=== PATIENT | female | born 1975 | race African-American/Black ===

== ENCOUNTER → 2020-10-03 | Day surgery (SDC) | payer OTHER ==
[~2020-10-03] VITALS: Ht 180.3 cm; Wt 105.7 kg
[~2020-10-03] MED LIST: ALLERGY SHOTS IM; ATARAX25 MG PO; FLONASE ALLER15.8 ML; MELOXICAM15 MG PO; VIT D PO; WELLBUTRIN XL150 MG PO; ZYRTEC10 M3 PO
[2020-10-03 13:27] LABS: HCG (URINE) SCREEN NEGATIVE (NEGATIVE)
[2020-10-03 13:46] LABS: HCT 32.5 % (37.0-47.0); HGB 10.4 g/dl (12.5-16.0); MCH 28.8 pg (25.0-31.0); MPV 9.6 fL (6.0-9.5); RBC 3.61 M/uL (4.20-5.40); RDW 14.1 % (11.5-14.0); WBC 8.1 K/uL (4.0-10.5)
== END | disposition home or self-care (01) ==
LOC: FAS 12:30
PROVIDERS: Anesthesiology
DX: N85.8 Other specified noninflammatory disorders of uterus (principal); F41.9 Anxiety disorder, unspecified; Z79.899 Other long term (current) drug therapy
CPT/HCPCS: 36415; 84703; 93005; J0690; J1100; J1170; J1885; J2250; J2405; J2704; J3010; J7120

== ENCOUNTER → 2021-08-28 | Day surgery (SDC) | payer OTHER ==
[~2021-08-28] VITALS: Ht 180.3 cm; Wt 104.3 kg
[~2021-08-28] MED LIST changes: +TIZANIDINE HCL2 MG PO
[2021-08-28 09:00] LABS: HCG (URINE) SCREEN NEGATIVE (NEGATIVE)
== END | disposition home or self-care (01) ==
LOC: FAS 08:45
PROVIDERS: Anesthesiology
DX: Z12.11 Encounter for screening for malignant neoplasm of colon (principal); K62.1 Rectal polyp; Z80.0 Family history of malignant neoplasm of digestive organs
CPT/HCPCS: 84703; J2704; J7120

== ENCOUNTER → 2021-09-29 | Day surgery (SDC) | payer OTHER ==
[~2021-09-29] VITALS: Ht 180.3 cm; Wt 102.0 kg
[2021-09-29 07:01] LABS: HCT 42.2 % (37.0-47.0); HGB 13.4 g/dl (12.5-16.0); MCH 28.5 pg (25.0-31.0); MCHC 31.8 g/dL (32.0-36.0); MCV 89.6 fL (78.0-100.0); MPV 9.4 fL (6.0-9.5); RBC 4.71 M/uL (4.20-5.40); RDW 14.4 % (11.5-14.0)
[2021-09-29 07:02] LABS: HCG (URINE) SCREEN NEGATIVE (NEGATIVE)
[2021-09-29 07:17] LABS: ALBUMIN 3.8 g/dL (3.4-5.0); BILIRUBIN - TOTAL 0.5 mg/dL (0.2-1.0); BUN/CREAT RATIO (CALC) 17.1 RATIO; CREATININE 1.05 mg/dL (0.51-0.95); GLOBULIN (CALCULATION) 3.7 g/dL; TOTAL PROTEIN 7.5 g/dL (6.4-8.2)
== END | disposition home or self-care (01) ==
LOC: FAS 06:14
PROVIDERS: Orthopaedic Surgery
DX: M79.4 Hypertrophy of (infrapatellar) fat pad (principal); M25.861 Other specified joint disorders, right knee; M67.51 Plica syndrome, right knee
CPT/HCPCS: 36415; 80053; 84703; J1100; J1170; J1885; J2250; J2405; J2704; J3010; J7120